=== PATIENT | female | born 2000 | race Caucasian/White ===

== ENCOUNTER 2021-09-11 22:56 | Emergency (ER) | payer OTHER ==
[~2021-09-11] VITALS: Ht 165.1 cm; Wt 56.0 kg
[~2021-09-11 22:56] MED LIST: PRED20TA PO
[2021-09-11] MEDS ORDERED: bacitracin 15gm ointment TP ONE (23:45)
[2021-09-11] MEDS ORDERED: TETanus/Pertussis (Acell)/Diphther VAC/PF (Tdap-Adult) 0.5ml syringe IMVAC ONE (23:45)
[2021-09-12 00:24] VITALS: BP 89/65
== END 2021-09-12 00:26 | disposition home or self-care (01) ==
LOC: ER 22:56
DX: S61.011A Laceration without foreign body of right thumb without damage to nail, initial encounter (principal); W25.XXXA Contact with sharp glass, initial encounter; Y93.89 Activity, other specified; Y92.89 Other specified places as the place of occurrence of the external cause; Y99.0 Civilian activity done for income or pay
CPT/HCPCS: 12001; 90471; 90715; 99283

== ENCOUNTER 2021-09-12 12:05 | Emergency (ER) | payer OTHER ==
[~2021-09-12] VITALS: Ht 165.1 cm; Wt 55.4 kg
[2021-09-12 12:28] VITALS: BP 91/64
== END 2021-09-12 12:55 | disposition home or self-care (01) ==
LOC: ER 12:06
DX: Z02.79 Encounter for issue of other medical certificate (principal); S61.011D Laceration without foreign body of right thumb without damage to nail, subsequent encounter; Z79.899 Other long term (current) drug therapy; W25.XXXD Contact with sharp glass, subsequent encounter
CPT/HCPCS: 99281

== ENCOUNTER → 2021-09-19 | Emergency (ER) | payer OTHER ==
[~2021-09-19] VITALS: Ht 165.1 cm; Wt 55.4 kg
[2021-09-19 22:46] VITALS: BP 89/60
== END | disposition left against medical advice (07) ==
LOC: ER 22:17
DX: S61.011D Laceration without foreign body of right thumb without damage to nail, subsequent encounter (principal); Z48.00 Encounter for change or removal of nonsurgical wound dressing; X58.XXXD Exposure to other specified factors, subsequent encounter
CPT/HCPCS: 99282